=== PATIENT | female | born 1970 | race Caucasian/White ===

== ENCOUNTER 2016-10-09 16:59 | Emergency (ER) | payer SELFPAY ==
[2016-10-09] MEDS ORDERED: Phenergan 25 MG INJ IM ONE (17:44)
[2016-10-09] MEDS ORDERED: Hydromorphone 1 mg/ml Ampule IM ONE (17:44)
--- NOTE | 2016-10-09 17:46 | ERPHSYRPT ---
- History of Present Illness Time Seen by Provider: 10/09/16 17:40 Source: patient Exam Limitations: clinical condition Patient Subjective Stated Complaint: lifted a box approx an hour ago and twisted back and fell. having sharp pain in lower back and down left leg. Triage Nursing Assessment: to room per w/c, skin w/d, color normal. tender lower back. states tingles down left leg. good cap refill and good pedal pulses. Physician History: PATIENT STATES WHILE LIFTING BOX TWISTED AND FELL ONTO BUTTOCK, COMPLAINS OF SEVERE LOWER BACK PAIN RADIATES DOWN LEFT LEG. DENIES ASSOCIATED HEAD, AND NECK PAIN. Occurred: just prior to arrival Reason for Fall: tripped, fell from standing pos Injuries/Pain Location: back Loss of Consciousness: no loss of consciousness Quality: sharpness, throbbing Severity of Pain-Max: severe Severity of Pain-Current: moderate Modifying Factors: Improves With: movement Associated Symptoms (Fall): back pain Allergies/Adverse Reactions: aspirin Allergy (Verified 10/09/16 17:23) Penicillins Allergy (Verified 10/09/16 17:23) Hx Tetanus, Diphtheria Vaccination/Date Given: Yes Hx Influenza Vaccination/Date Given: No Hx Pneumococcal Vaccination/Date Given: No - Review of Systems Constitutional: No Fever, No Chills Eyes: No Symptoms Ears, Nose, & Throat: No Symptoms Respiratory: No Symptoms, No Cough, No Dyspnea Cardiac: No Symptoms, No Chest Pain, No Edema, No Syncope Abdominal/Gastrointestinal: No Abdominal Pain, No Nausea, No Vomiting, No Diarrhea Genitourinary Symptoms: No Dysuria Musculoskeletal: Injury, No Back Pain, No Neck Pain Skin: No Rash Neurological: No Dizziness, No Focal Weakness, No Sensory Changes Psychological: No Symptoms Endocrine: No Symptoms All Other Systems: Reviewed and Negative - Past Medical History Pertinent Past Medical History: No - Past Surgical History Past Surgical History: Yes Gastrointestinal: Cholecystectomy Female Surgical History: Hysterectomy, Tubal Ligation - Social History Smoking Status: Never smoker Exposure to second hand smoke: No Drug Use: none Patient Lives Alone: No - Nursing Vital Signs Nursing Vital Signs: Initial Vital Signs Temperature 98.1 F Temperature Source Oral Pulse Rate 72 Respiratory Rate 18 Blood Pressure [Right Arm] 108/75 Pain Intensity 3 - Raymundo Coma Score Best Eye Response (Hale): (4) open spontaneously Best Verbal Response (Hale): (5) oriented Best Motor Response (Raymundo): (6) obeys commands Hale Total: 15 - Physical Exam General Appearance: no apparent distress, alert Head Injury: no evidence of injury Eye Exam: PERRL/EOMI ENT Exam: airway nml Neck Exam: normal inspection, No tenderness Respiratory/Chest Exam: normal breath sounds, No chest tenderness, No respiratory distress Cardiovascular Exam: normal heart sounds, regular rate/rhythm Gastrointestinal Exam: soft, No tenderness, No distention, No guarding, No ecchymosis Back Exam: normal inspection, decreased range of motion, point tenderness ( TENDERNESS PARA SPINAL L-3 TO L-5), No vertebral tenderness Extremity Exam: normal inspection, normal range of motion, pelvis stable, No deformities Peripheral Pulses: carotid (R): 2+, carotid (L): 2+, femoral (R): 2+, femoral (L ): 2+, dorsalis-pedis (R): 2+, dorsalis-pedis (L): 2+ Neurologic Exam: alert, oriented x 3, cooperative, sensation nml, No motor deficits Skin Exam: normal color, warm, dry SpO2 Interpretation: normal SpO2: 97 Oxygen Delivery: Room Air - CT Exams Lumbar Spine CT Interpretation: Discussed w/radiologist (MILD L-5 TO S-1 DISC BULGE, NO SPINAL CANAL STENOSIS, NO ACUTE BONY ABNORMALITY) Ordered Tests: Active Orders 24 hr Category Date Time Status LUMBAR SPINE W/O [CT] Stat Exams 10/09/16 17:45 Taken Medication Summary Discontinued Medications Generic Name Dose Route Start Last Admin Trade Name Freq PRN Reason Stop Dose Admin Hydromorphone HCl 1 mg 10/09/16 17:44 10/09/16 17:57 Hydromorphone 1 Mg/Ml Ampule IM 10/09/16 17:45 1 mg STAT ONE Administration Hydromorphone HCl Confirm 10/09/16 17:49 Hydromorphone 1 Mg/Ml Ampule Administered 10/09/16 17:50 Dose 1 mg .ROUTE .STK-MED ONE Promethazine HCl 25 mg 10/09/16 17:44 10/09/16 17:57 Phenergan 25 Mg Inj IM 10/09/16 17:45 25 mg STAT ONE Administration Promethazine HCl Confirm 10/09/16 17:48 Phenergan 25 Mg Inj Administered 10/09/16 17:49 Dose 25 mg .ROUTE .STK-MED ONE - Progress Progress: improved Progress Note: 10/09/16 18:50 PATIENT GIVEN DILAUDID 1MG/PHENERGAN 25MG IM Counseled pt/family regarding: diagnosis, need for follow-up, rad results - Departure Time of Disposition: 18:55 Departure Disposition: Home Clinical Impression: ACUTE LUMBAR CONTUSION/STRAIN, DEGENERATIVE DISC DISEASE Condition: Stable Critical Care Time: No Additional Instructions: NORCO 10/325 EVERY 4 HOURS FOR PAIN NEEDED. VALIUM 5MG EVERY 12 HOURS NEEDED FOR MUSCLE SPASM. FOLLOWUP WITH YOUR FAMILY PHYSICIAN FOR EVALUATION, PHYSICAL THERAPY REFERRAL. Prescriptions: Hydrocodone/APAP 10/325 mg [[place] 10/325 MG Tablet] 1 tab PO Q4H PRN PRN # 15 tablet PRN Reason: Pain Diazepam 5 mg [Valium 5 MG] 5 mg PO BIDPRN PRN #10 tablet PRN Reason: Muscle Spasms
[2016-10-09] MEDS ORDERED: Phenergan 25 MG INJ ONE (17:48)
[2016-10-09] MEDS ORDERED: Hydromorphone 1 mg/ml Ampule ONE (17:49)
[2016-10-09 18:52] VITALS: BP 122/76; PULSE 60; O2SAT 97
--- NOTE | 2016-10-10 08:38 | XRAY ---
Indication: Low back pain following 4 feet fall. Multiple contiguous axial images obtained through the lumbar spine. Sagittal and coronal reformatted images obtained. Comparison: None Axial images negative for acute fracture, suspicious bony lesions, or spinal canal stenosis. Minimal L5-S1 broad-based disc bulge. Sagittal and coronal reformatted images demonstrate normal alignment. Minimal L5-S1 disc space narrowing. Remaining disc spaces maintained. No acute compression fracture or subluxation. Visualized noncontrasted soft tissues unremarkable. Impression: L5-S1 degenerative disc disease. Remaining CT lumbar spine is negative. Comment: Preliminary interpretation was made by [facility]. No discrepancy. CT DI 38.59
== END 2016-10-09 19:03 | disposition home or self-care (01) ==
LOC: ED 16:59
DX: S30.0XXA Contusion of lower back and pelvis, initial encounter (principal); S39.012A Strain of muscle, fascia and tendon of lower back, initial encounter; M51.36 Other intervertebral disc degeneration, lumbar region; X50.0XXA Overexertion from strenuous movement or load, initial encounter; W01.0XXA Fall on same level from slipping, tripping and stumbling without subsequent striking against object, initial encounter
CPT/HCPCS: 72131; 96372; 99284; J1170; J2550